=== PATIENT | female | born 1955 | race Hispanic/Latino ===

== ENCOUNTER 2024-10-21 06:42 | Emergency (ER) | payer MEDICARE ==
[~2024-10-21] VITALS: Ht 160 cm; Wt 69.4 kg
[2024-10-21 06:51] VITALS: TEMP 98.3
[2024-10-21] MEDS: KETOROLAC TROMETHAMINE 30 MG/ML VIAL IM STA (07:19)
[2024-10-21 07:23] VITALS: PULSE 67; RESP 16; O2SAT 95
[2024-10-21] MEDS ORDERED: NAPROXEN250 MG PO (07:34)
== END 2024-10-21 08:48 | disposition home or self-care (01) ==
LOC: ER 06:53
DX: R25.2 Cramp and spasm (principal); M79.661 Pain in right lower leg; I10 Essential (primary) hypertension; R73.03 Prediabetes; I69.354 Hemiplegia and hemiparesis following cerebral infarction affecting left non-dominant side
CPT/HCPCS: 99282; J1885